=== PATIENT | male | born 1990 | race Caucasian/White ===

== ENCOUNTER 2020-06-01 19:14 | Emergency (ER) | payer SELFPAY ==
[~2020-06-01] VITALS: Ht 172.7 cm; Wt 81.6 kg
== END 2020-06-01 20:30 | disposition home or self-care (01) ==
LOC: ED 19:14
DX: T15.92XA Foreign body on external eye, part unspecified, left eye, initial encounter (principal); W45.8XXA Other foreign body or object entering through skin, initial encounter; Y93.89 Activity, other specified; Y92.89 Other specified places as the place of occurrence of the external cause; Y99.8 Other external cause status